=== PATIENT | female | born 1945 | race Caucasian/White ===

== ENCOUNTER 2019-07-15 10:07 | Inpatient (IN) ==
[2019-07-15] MEDS ORDERED: DILAUDID IV PRN (11:51)
[2019-07-15] MEDS ORDERED: PROTONIX IV ONE (12:00)
[2019-07-15 12:14] LABS: INR 1.07; PROTIME 14.1 Seconds (11.0-16.0)
[2019-07-15 12:15] LABS: PTT 32.8 Seconds (22.3-41.8)
[2019-07-15 12:18] LABS: ALB/GLOB RATIO 1.2; ALBUMIN 4.9 g/dL (3.5-5.0); CALCIUM 9.5 mg/dL (8.8-10.2); CREATININE 1.2 mg/dL (0.5-0.9); POTASSIUM 3.7 mmol/L (3.5-5.1); TOTAL BILIRUBIN 0.74 mg/dL (0.20-1.00); TOTAL PROTEIN 8.9 g/dL (6.3-8.3)
[2019-07-15 12:21] LABS: BASO# 0.02 X1000 (0.0-0.2); BASO% 0.2 % (0.0-0.8); EOS# 0.01 X1000 (0.0-0.7); EOS% 0.1 % (0.0-10.0); HEMATOCRIT 39.9 % (37.0-47.0); HEMOGLOBIN 13.1 g/dL (12.0-16.0); IMM GRAN# 0.03 X1000 (0.0-0.04); IMM GRAN% 0.2 % (0.0-0.5); LYMPH# 0.98 X1000 (1.2-3.4); MCH 30.5 PG (27-31); MCHC 32.8 g/dL (33-37); MONO# 0.72 X1000 (0.11-0.59); MONO% 5.9 % (1.7-9.3); MPV 9.8 FL (7.4-10.4); NEUT# 10.46 X1000 (1.4-6.5); NEUT% 85.6 % (42.2-75.2); PLT 287 X1000 (130-400); RBC 4.29 XMIL (4.2-5.4); RDW 13.2 % (11.5-14.5); WBC 12.22 X1000 (4.8-10.8)
--- NOTE | 2019-07-15 12:21 | Diag Imaging Result Doc PS360 ---
EXAM: ABDOMEN FLAT/UPRIGHT 07/15/2019 HISTORY: Abdominal Pain TECHNIQUE: Flat and upright abdomen COMMENT: There is a phlebolith on the left side of the pelvis and multiple smaller calcifications are present which may also represent phleboliths. There is a calcification in the left upper quadrant which appears to be above the left kidney. This may be a granuloma. The bowel gas pattern is unremarkable. Compared to 05/12/2017 the appearance of the abdomen including the calcifications described above has not changed significantly. IMPRESSION: Nonspecific abdomen. Electronically signed by Keyshawn Rush 07/15/2019 12:19 PM
[2019-07-15 12:34] LABS: BANDS 2 % (0-1); LYMPHS 10 % (21-51); SEGS 88 % (42-75)
--- NOTE | 2019-07-15 12:58 | Diag Imaging Result Doc PS360 ---
EXAM: CT ABDOMEN/PELVIS W/O CONTRAST 07/15/2019 HISTORY: Abdominal pain TECHNIQUE: This exam was performed using automated exposure control, adjustment of mA or kV according to patient size, and/or use of iterative reconstruction technique. COMMENT: There is a calcified granuloma in the lateral right lower lobe costophrenic sulcus. The appearance of the visualized portion of the chest has not changed significantly since 04/06/2018. There is generalized cardiomegaly with particular enlargement of the atria. There are granulomata in the liver. The spleen is not enlarged. The adrenal glands are not enlarged. There are dense calcifications in the proximal renal arteries bilaterally. There is no evidence of abdominal aortic aneurysm. The gallbladder is distended and thickened in appearance. There is no appreciable cholelithiasis. The common bile duct is distended to at least 13 mm. This has increased from 10 mm at the time the previous study. There are no definite abnormalities in the pancreas although this is a noncontrast study. There is a 2 mm calculus in the upper pole of the left kidney. There is a 1 to 2 mm calculus in the upper pole on the left and there are multiple left renal cysts some of which are hyperdense in appearance. There is no evidence of hydronephrosis. There is no evidence of bowel obstruction. There is no evidence of appendicitis. There is some fluid anteriorly in the pelvis. This was not the case on the previous study. The urinary bladder is not distended. There has been hysterectomy. There is no evidence of significant adenopathy. IMPRESSION: The possibility of acute cholecystitis cannot be excluded. Bilateral nephrolithiasis without evidence of obstructive uropathy. Nonspecific free fluid in the pelvis. Other nonacute findings as described above. The findings were discussed with Kobi Wyatt MD at 07/15/2019 12:55 PM. Electronically signed by Keyshawn Rush 07/15/2019 12:56 PM
[2019-07-15] MEDS: ZOSYN 3.375 GM in NS 50 ML IV SCH ×2 (14:37→18:00)
[2019-07-15] MEDS: NS 1,000 ML IV SCH (14:38)
[2019-07-15] MEDS: ZOFRAN IV SCH (14:43)
[2019-07-15] MEDS ORDERED: HYZAAR 100/12.5 MG TAB PO SCH (14:45)
--- NOTE | 2019-07-15 15:18 | EKG Report ---
Test Performed on : 07/15/2019 2:56:16 PM Test Reason : CP Blood Pressure : / mmHG Vent. Rate : 064 BPM Atrial Rate : 357 BPM P-R Int : 000 ms QRS Dur : 068 ms QT Int : 406 ms P-R-T Axes : 000 035 044 degrees QTc Int : 418 ms Atrial fibrillation. Nonspecific ST and T wave abnormality Abnormal ECG When compared with ECG of 20-AUG-2015 17:08, T wave inversion less evident in Anterolateral leads Confirmed by Dino CUELLAR, Freddy Arcos ([id number]) on 07/16/2019 7:44:13 AM
--- NOTE | 2019-07-15 15:35 | HISTORY AND PHYSICAL ---
CHIEF COMPLAINT: Abdominal pain. HISTORY OF PRESENT ILLNESS: A 74-year-old, female patient, who started having abdominal pain yesterday. The patient described pain in the upper abdomen, moderate in intensity, at times severe. Pain from the upper abdomen going to her back. The patient did have some nausea. She vomited once. The patient also had some chills. No high-grade fever. The pain persisted the whole night. At times pain was easing up some. The patient was concerned. She came for evaluation to my office. I evaluated patient in the office. The patient did have significant tenderness in the upper abdomen with some voluntary guarding. Because of her abdominal pain, tenderness, pain going to her back, I decided to admit the patient for further management. Workup did reveal possibility of acute cholecystitis. No gallstones. The patient does have history of atrial fibrillation on Xarelto. The patient claims she did not take her Xarelto last night. She denied any typical chest pain. Occasional palpitations. No hematemesis or melena. The patient did have diarrhea yesterday, but no blood or mucus in the stool. The patient was complaining of cough with yellowish expectoration. No hemoptysis. No unusual shortness of breath. No runny nose, stuffy nose, sinus drainage. Denied weight loss. No heat or cold intolerance. No focal numbness, tingling, weakness. The patient claims to be under stress. ALLERGIES: Sulfa. MEDICATIONS: Includes atenolol, Hyzaar, Xarelto, Norvasc, Lanoxin, Synthroid. PAST MEDICAL HISTORY: Hypertension, paroxysmal atrial fibrillation, hypothyroidism, gastritis, osteoarthritis, history suggestive of coronary artery disease. SOCIAL HISTORY: . Nonsmoker. Denied alcohol or substance abuse. Fairly independent in activities of daily living. REVIEW OF SYSTEMS: As per HPI. Otherwise unobtainable. FAMILY HISTORY: Noncontributory. REVIEW OF SYSTEMS: As per HPI. PHYSICAL EXAMINATION: GENERAL: Elderly white female patient in mild distress. VITAL SIGNS: Blood pressure 169/76, pulse 80, respiration 18, temperature 97.7 degrees. SKIN: Senile turgor. HEENT: Head atraumatic, normocephalic. [place] conjunctivae. Anicteric sclerae. Extraocular muscle movement normal. Fundus cannot be penetrated. Good oral hygiene. No tonsillopharyngeal congestion or exudate. Ears and nose benign. NECK: Supple. No JVD, thyromegaly or lymphadenopathy. CHEST: Bibasilar crepitation. No rales. CARDIOVASCULAR: S1 and S2 heard. No gallop or thrill. A 2/6 systolic murmur at the apex. ABDOMEN: Soft. No distention. Bowel sounds present. The patient does have tenderness in the upper abdomen. No guarding or rigidity. EXTREMITIES: No cyanosis, clubbing. No acute DVT. FLYER MAKER: Alert, awake. Answering questions fairly well. MUSCULOSKELETAL: No evidence of acute synovitis. Abdominal x-ray flat and upright: Nonspecific abdomen. CT scan of the abdomen and pelvis did reveal possibility of acute cholecystitis bilateral nephrolithiasis without evidence of obstructive uropathy. Nonspecific free fluid in the pelvis, other nonacute findings. LABORATORY DATA: Revealed mild leukocytosis with left shift. The patient does have 2 bands. PT/INR of 1.07, PTT 32.8. BUN 22 creatinine 1.2. Estimated GFR 44. LFTs were fairly benign. Amylase 90, lipase 33. CONSIDERATIONS: Patient admitted with upper abdominal pain some nausea, and vomiting. CT scan did reveal acute cholecystitis. 1. The first consideration acute cholecystitis. 2. The patient's other problem includes atrial fibrillation. 3. Hypertension. 4. Gastritis and reflux disease. 5. Hypothyroidism. PLAN: Admit the patient. IV hydration. IV antibiotics. Discussed about the patient's presentation with Dr. Nichols. Also informed him about her anticoagulation which she took last [address] Nichols going to evaluate the patient and then decide about possible surgery. cc: Kobi Wyatt MD
[2019-07-15] MEDS ORDERED: DIPRIVAN 1% ONE (16:16)
[2019-07-15] MEDS ORDERED: REGLAN ONE (17:07)
[2019-07-15] MEDS ORDERED: PEPCID ONE (17:07)
[2019-07-15] MEDS ORDERED: MARCAINE 0.25% PF/EPI 1:200,000 ONE (17:09)
[2019-07-15] MEDS ORDERED: LR 1,000 ML ONE (17:10)
[2019-07-15] MEDS ORDERED: SODIUM CHLORIDE 0.9% ONE (17:10)
[2019-07-15] MEDS ORDERED: OFIRMEV 1000 MG/ISOTONIC SOLN 1,000 MG/100 ML BOTTLE ONE (17:26)
[2019-07-15] MEDS ORDERED: ZOFRAN ONE (17:26)
[2019-07-15] MEDS ORDERED: DECADRON ONE (17:26)
[2019-07-15] MEDS ORDERED: XYLOCAINE-MPF 2% ONE (17:26)
[2019-07-15] MEDS ORDERED: QUELICIN (DOSE) ONE (17:26)
[2019-07-15] MEDS ORDERED: ZEMURON ONE (17:26)
--- NOTE | 2019-07-15 17:43 | GENERAL SURGERY CONSULTATION ---
DATE: 07/15/2019 HISTORY OF PRESENT ILLNESS: Ms. Chairez is 74-year-old lady I have been asked to see by Dr. Wyatt regarding her abdominal pain primarily in the epigastrium. She reports it started yesterday. The pain kept her awake through the night it was colicky in nature. She did have some nausea and she vomited x1. She reports some chills. Today, the pain persisted. She saw Dr. Wyatt in the office. He then admitted her for a workup. Her CT scan shows a dilated gallbladder with some thickness to the wall. She denies any chest pain. Her past history is pertinent for hypertension, paroxysmal atrial fibrillation, hypothyroidism, gastritis, osteoarthritis and possible coronary disease. MEDICATIONS: Her medications include atenolol, Hyzaar, Norvasc, Lanoxin, Synthroid. She is on Xarelto but has not taken it since night before last. ALLERGIC: Sulfa. SOCIAL HISTORY: She is a , nonsmoker. No alcohol or substance abuse. She does have attentive son and a friend. REVIEW OF SYSTEMS: Negative in the 10 subsystems except as noted above. FAMILY HISTORY: Not known. PHYSICAL EXAMINATION: Vital Signs: She is afebrile. Heart rate 84. Blood pressure is 115/51, respiratory rate 16. Neck: No cervical adenopathy. Respiratory: Bilateral breath sounds. Heart: Irregular rate and rhythm. Abdomen: Soft. She is tender in the epigastrium. No masses palpated. Femoral pulses are present. No peripheral edema. Neurologic: She is awake and alert. She has good strength in all extremities. LABORATORY DATA: Her laboratory data reveals white count of 12,200. Her total bilirubin is 0.74. Alkaline phosphatase is 119. Troponin is less than 0.01. Amylase and lipase are normal. CT scan reports the possibility of acute cholecystitis. There is bilateral nephrolithiasis. ASSESSMENT: Probable acute cholecystitis. PLAN: I have discussed for a cholecystectomy with her, the benefits and risks. She understands and wants to proceed. We will plan a laparoscopic approach. cc: MD Kobi Ivory MD
[2019-07-15] MEDS ORDERED: LOPRESSOR ONE (17:44)
[2019-07-15] MEDS ORDERED: BREVIBLOC ONE (17:44)
[2019-07-15] MEDS ORDERED: FENTANYL ONE (17:54)
[2019-07-15] MEDS ORDERED: NEOSTIGMINE ONE (17:59)
[2019-07-15] MEDS ORDERED: ROBINUL ONE (17:59)
[2019-07-15 18:15] LABS: URINE SOURCE CLEAN CATCH
[2019-07-15 18:21] LABS: BILIRUBIN URINE NEGATIVE (NEGATIVE); BLOOD URINE SMALL (NEGATIVE); COLOR YELLOW; GLUCOSE URINE NEGATIVE (NEGATIVE); KETONE URINE NEGATIVE (NEGATIVE); LEUKOCYTES URINE NEGATIVE (NEGATIVE); NITRITE URINE NEGATIVE (NEGATIVE); PROTEIN URINE 200 mg/dL (NEGATIVE); SP GRAVITY URINE 1.017; TURBIDITY URINE CLEAR (CLEAR); UR EPITHELIAL CELLS <10 /HPF (<10); URINE BACTERIA NEGATIVE /HPF; URINE RBC <10 /HPF (<10); URINE WBC <10 /HPF (<10); UROBILINOGEN URINE NORMAL (NORMAL)
[2019-07-15] MEDS: PERIDEX MT SCH (20:06)
[2019-07-15] MEDS: NORCO-10 PO PRN (20:10)
--- NOTE | 2019-07-15 21:34 | OPERATIVE NOTE ---
PROCEDURE DATE: 07/15/2019 PROCEDURE PERFORMED: Laparoscopic cholecystectomy with operative cholangiogram. SURGEON: Jamey Nichols MD. STERILE PROCESSING MANAGER: Mendy Dior. PREOPERATIVE DIAGNOSIS: Acute acalculous cholecystitis. POSTOPERATIVE DIAGNOSIS: Acute acalculous cholecystitis. FINDINGS: The cholangiogram revealed a slightly dilated duct with no intraluminal filling defects. Free flow in the duodenum. DESCRIPTION OF PROCEDURE: Satisfactory general endotracheal anesthesia was achieved. The abdomen was prepped and draped in a sterile fashion. We anesthetized the skin just below the umbilicus. We incised the skin and carried our incision down to the fascia. We scored the fascia and introduced an 11 trocar under Optiview technique. We insufflated through this trocar under direct visualization. We used a 5 trocar midclavicular line, 5 trocar near the anterior axillary line and 11 mm trocar in the midepigastrium. We placed the patient in reverse Trendelenburg and turned her to the left. The gallbladder was enlarged and distended. We aspirated it with the aspirating needle to decompress it. We then grasped it with a ratcheted grasper and reflected it cephalad. We then began dissection of the triangle of [place]. We dissected the omental adhesions off the infundibulum and then dissected the triangle. We obtained a critical view. We clipped the cystic artery proximally x2 and distally x1 and divided it. The cystic duct was clipped near the junction of the gallbladder. We incised the cystic duct and introduced a [place] catheter, and the findings above were noted. We removed the cholangiogram catheter, clipped the cystic duct on the opposite side of the cystic ductotomy x2, and then transected it. We then used the cautery spatula to dissect the gallbladder out of the gallbladder fossa. After complete separation of the gallbladder from the liver, we then changed the videolaparoscope to the mid epigastric trocar, and we introduced an EndoCatch, placed the gallbladder within the bag and delivered it out of the abdominal cavity. We looked back and aspirated what fluid had collected. Hemostasis was satisfactory. There was no evidence of bile leak. We flattened the patient and used a Sloan- Jennifer wound closure for the epigastrium. A 2-0 Polysorb stitch was used for that. We then decompressed the abdominal cavity and removed our trocars. We closed the fascia at the umbilicus with a 2-0 Polysorb fascial stitch there. We then closed the skin at each incision with 4-0 Polysorb subcuticular stitches. Sterile OpSites were applied. She tolerated it well and was sent to the recovery room in satisfactory condition. cc: MD Kobi Ivory MD
[2019-07-16] MEDS: ZOSYN 3.375 GM in NS 50 ML IV SCH ×4 (00:20→17:03)
[2019-07-16] MEDS: ZOFRAN IV SCH ×4 (00:20→17:03)
[2019-07-16] MEDS: NS 1,000 ML IV SCH ×2 (05:18→17:01)
[2019-07-16] MEDS: SYNTHROID PO SCH ×2 (05:24→06:02)
[2019-07-16 07:27] LABS: HEMATOCRIT 33.9 % (37.0-47.0); HEMOGLOBIN 10.9 g/dL (12.0-16.0); IMM GRAN# 0.02 X1000 (0.0-0.04); IMM GRAN% 0.1 % (0.0-0.5); LYMPH% 2.8 % (20.5-51.1); MCH 30.4 PG (27-31); MCHC 32.2 g/dL (33-37); MCV 94.4 FL (81-99); MONO# 0.67 X1000 (0.11-0.59); MONO% 4.7 % (1.7-9.3); MPV 9.9 FL (7.4-10.4); NEUT# 13.23 X1000 (1.4-6.5); NEUT% 92.4 % (42.2-75.2); PLT 230 X1000 (130-400); RBC 3.59 XMIL (4.2-5.4); RDW 13.2 % (11.5-14.5); WBC 14.32 X1000 (4.8-10.8)
[2019-07-16 07:44] LABS: ALBUMIN 3.6 g/dL (3.5-5.0); CALCIUM 7.8 mg/dL (8.8-10.2); CREATININE 1.3 mg/dL (0.5-0.9); MAGNESIUM 1.8 mg/dL (1.5-2.7); POTASSIUM 3.7 mmol/L (3.5-5.1); TOTAL BILIRUBIN 0.94 mg/dL (0.20-1.00); TOTAL PROTEIN 7.3 g/dL (6.3-8.3)
[2019-07-16 08:06] LABS: BANDS 12 % (0-1); LYMPHS 2 % (21-51); MONO 2 % (1-9); SEGS 84 % (42-75)
[2019-07-16] MEDS: PROTONIX IV SCH (08:07)
[2019-07-16] MEDS: NORVASC PO SCH ×2 (08:07→08:09)
[2019-07-16] MEDS: PERIDEX MT SCH ×2 (08:07→20:56)
[2019-07-16] MEDS: TENORMIN PO SCH (08:07)
--- NOTE | 2019-07-16 10:34 | PROGRESS NOTE ---
DATE: 07/16/2019 SUBJECTIVE: The patient says she is feels sore after her cholecystectomy. She had her surgery yesterday for acute acalculous cholecystitis. OBJECTIVE: Vital signs: Blood pressure is 121/73, respirations 18, pulse 95, temperature 97.8 degrees Fahrenheit. HEENT: She is normocephalic. PERRLA. Throat clear. Lungs: Clear to auscultation and percussion without rhonchi, rales, or wheezes. Heart: Regular rate and rhythm without murmurs, gallops, friction rubs. Abdomen: Soft with active bowel sounds but tender because of her surgery. Neurological: Intact grossly. ASSESSMENT: Status post cholecystectomy. PLAN: Continue care. cc: MD Kobi Loving Jr, MD
--- NOTE | 2019-07-16 11:57 | GENERAL SURGERY PROGRESS NOTE ---
DATE: 07/16/2019 SUBJECTIVE: The patient complains of nausea. She has been able to drink a little bit of clear liquids but not much due to the nausea. She has already been up walking. OBJECTIVE: She is afebrile. Vital signs are stable.General: She is awake, alert, oriented x3. No acute distress. GI: Soft, perhaps some mild distention, hypoactive bowel sounds. Incisional dressings are clean and dry. LABORATORY: White blood cell count [id number], hemoglobin 11. Complete metabolic profile reviewed and unremarkable. ASSESSMENT AND PLAN: A 74-year-old female postoperative day 1 laparoscopic cholecystectomy. She is nauseated. We will continue observation and treat her nausea and keep her on clear liquids for now. cc: MD Kobi Shah MD
[2019-07-16] MEDS: NORCO-10 PO PRN (17:03)
[2019-07-17] MEDS: ZOSYN 3.375 GM in NS 50 ML IV SCH ×5 (04:12→21:42)
[2019-07-17] MEDS: NS 1,000 ML IV SCH ×2 (04:13→16:54)
[2019-07-17] MEDS: ZOFRAN IV SCH ×5 (04:13→21:43)
[2019-07-17] MEDS: SYNTHROID PO SCH (06:07)
[2019-07-17] MEDS: NORCO-10 PO PRN (09:19)
[2019-07-17] MEDS: TENORMIN PO SCH (09:22)
[2019-07-17] MEDS: NORVASC PO SCH (09:22)
[2019-07-17] MEDS: PROTONIX IV SCH (09:23)
[2019-07-17] MEDS: LANOXIN PO SCH (09:23)
[2019-07-17] MEDS: PERIDEX MT SCH ×2 (09:23→21:42)
--- NOTE | 2019-07-17 10:44 | PROGRESS NOTE ---
DATE: 07/19/2019 SUBJECTIVE: The patient says she does not feel well, that she has had nausea and has had more abdominal pain. She feels like her abdomen is more distended. She is postop cholecystectomy and some of the distention could be anticipated just from her surgery and that she has had air in her abdomen, she thinks this is more. OBJECTIVE: Vital Signs: Temperature is 98.3 degrees Fahrenheit, pulse 84 and regular, respirations 18, blood pressure 121/59. HEENT: She is normocephalic. EOMs intact. PERRLA. Throat clear. Neck: Supple. Lungs: Clear to auscultation and percussion without rhonchi, rales, or wheezes. Heart: Regular rate and rhythm without murmurs, gallops, or friction rubs. Abdomen: Does seem somewhat distended. This is not uncommon after a laparoscopic cholecystectomy but there are a few little high tinkling bowel sounds. ASSESSMENT: 1. Status post cholecystectomy for acalculous cholecystitis. 2. Abdominal pain. PLAN: This pain may be just postoperative discomfort. Since the bowel sounds are a little high pitched and she seems distended, we will go ahead and get x-rays just to make sure she does not have an ileus. Surgery will also see her today. Laboratory work is pending. cc: MD Kobi Loving Jr, MD
[2019-07-17 11:21] LABS: HEMATOCRIT 31.1 % (37.0-47.0); HEMOGLOBIN 9.7 g/dL (12.0-16.0); IMM GRAN# 0.05 X1000 (0.0-0.04); IMM GRAN% 0.4 % (0.0-0.5); LYMPH# 0.83 X1000 (1.2-3.4); LYMPH% 6.1 % (20.5-51.1); MCH 30.1 PG (27-31); MCHC 31.2 g/dL (33-37); MCV 96.6 FL (81-99); MONO# 0.86 X1000 (0.11-0.59); MONO% 6.3 % (1.7-9.3); MPV 10.1 FL (7.4-10.4); NEUT# 11.85 X1000 (1.4-6.5); NEUT% 87.2 % (42.2-75.2); PLT 213 X1000 (130-400); RBC 3.22 XMIL (4.2-5.4); RDW 13.6 % (11.5-14.5); WBC 13.59 X1000 (4.8-10.8)
[2019-07-17 11:22] LABS: CREATININE 1.3 mg/dL (0.5-0.9); POTASSIUM 3.9 mmol/L (3.5-5.1)
--- NOTE | 2019-07-17 11:33 | Diag Imaging Result Doc PS360 ---
EXAM: FLAT/UPRIGHT ABD/1 VIEW CHEST 07/17/2019 HISTORY: abd pain and distension TECHNIQUE: Flat and upright abdomen with AP chest COMMENT: There are air-fluid levels in the ascending colon. The stomach and small bowel are not distended. Compared to 07/15/2019 there is more colonic gas. The heart size is slightly enlarged. There are bilateral pleural effusions. Compared to the previous study of 08/20/2015, the pleural effusions were not present previously. There is also bibasilar atelectasis which was not previously present. IMPRESSION: The possibility of enterocolitis cannot be excluded. No evidence of obstruction. Cardiomegaly and pleural effusions with bibasilar atelectasis. Electronically signed by Keyshawn Rush 07/17/2019 11:31 AM
[2019-07-17 12:14] LABS: LYMPHS 6 % (21-51); MONO 8 % (1-9); SEGS 86 % (42-75)
--- NOTE | 2019-07-17 18:34 | GENERAL SURGERY PROGRESS NOTE ---
DATE: 07/17/2019 SUBJECTIVE: She continues to complain of nausea. No significant pain. OBJECTIVE: Vitals: She is afebrile. Vital signs are stable. General: She is awake and alert, appears ill but in no acute distress. GI: Soft, minimally tender. Mildly distended. Incision is clean, dry, intact. LABORATORY: White blood cell count 13,000, hemoglobin 9.7, hematocrit 31. Electrolytes reviewed, unremarkable. IMAGING: Abdominal x-ray shows air-fluid levels in ascending colon. Small bowel and stomach are not distended. There is more colonic gas than previous x-ray. ASSESSMENT/PLAN: A 74-year-old female status post laparoscopic cholecystectomy. She appears to be having some sort of postoperative ileus, mainly in the colon. I would continue supportive care at this time. I expect this to slowly resolve. cc: MD Kobi Shah MD
[2019-07-18] MEDS: NORCO-10 PO PRN (01:08)
[2019-07-18] MEDS: ZOSYN 3.375 GM in NS 50 ML IV SCH ×4 (03:07→22:10)
[2019-07-18] MEDS: ZOFRAN IV SCH ×5 (03:07→22:10)
[2019-07-18] MEDS: SYNTHROID PO SCH (06:45)
--- NOTE | 2019-07-18 07:16 | PROGRESS NOTE ---
DATE: 07/18/2019 SUBJECTIVE: Ms. Chairez is doing fair. She still has some abdominal soreness and nausea. No vomiting. No high-grade fever or chills. The patient is status post cholecystectomy. No diarrhea. No runny nose, stuffy nose, mild cough. No expectoration. OBJECTIVE: Vital Signs: Noted. Neck: Supple. No JVD. Lungs: Bilateral good air entry present. Cardiovascular: S1 and S2 heard. Irregularly irregular. Abdomen: Soft, mild soreness. Extremities: No cyanosis, clubbing. No acute DVT. SHAPING MACHINE OPERATOR: Alert, awake, answering questions fairly well. X-RAY: X-ray done yesterday did reveal possibility of enterocolitis. No evidence of obstruction, cardiomegaly and pleural effusion. We will encourage ambulation. I am going to try Dulcolax suppository. I am going to resume Xarelto if okay with surgeon. LABORATORY DATA: Laboratory data done yesterday noted electrolytes were fairly benign. PLAN: Overall plan discussed with the patient. When okay with surgeon, we will discharge patient home. cc: Kobi Wyatt MD
[2019-07-18] MEDS: DULCOLAX PR ONE ×2 (08:15→18:53)
[2019-07-18] MEDS: PROTONIX IV SCH (08:16)
[2019-07-18] MEDS: NORVASC PO SCH (08:16)
[2019-07-18] MEDS: TENORMIN PO SCH (08:16)
[2019-07-18] MEDS: PERIDEX MT SCH ×2 (08:16→22:10)
--- NOTE | 2019-07-18 08:53 | GENERAL SURGERY PROGRESS NOTE ---
DATE: 07/18/2019 She is now 3 days after a laparoscopic cholecystectomy. Her pain is resolved. She is gradually getting back to normal. A little slow on her p.o. intake. We will give her some regular food today. It is okay with me that she go home today and then return to see me in the office in a week. cc: MD Kobi Ivory MD
--- NOTE | 2019-07-18 11:25 | Diag Imaging Result Doc PS360 ---
OPERATIVE CHOLANGIOGRAM - 07/15/2019 INDICATION: CHOLECYSTECTOMY TECHNIQUE: The exam was performed by the patient's surgeon. Two images were obtained. COMPARISON: CT from 07/15/2019 FINDINGS: Contrast was infused into the cystic duct. There is moderate diffuse dilation of the common bile duct is nonspecific. No focal strictures or filling defect. There is good passage of contrast into the duodenum. Several hepatic ducts were opacified and these appear normal. IMPRESSION: Nonspecific, moderate diffuse dilation of the common bile duct. Electronically signed by Jake Valencia 07/18/2019 11:23 AM
[2019-07-18] MEDS ORDERED: XARELTO PO SCH (17:00)
[2019-07-18] MEDS: NS 1,000 ML IV SCH (18:12)
[2019-07-19] MEDS: ZOFRAN IV SCH ×2 (04:31→07:53)
[2019-07-19] MEDS: ZOSYN 3.375 GM in NS 50 ML IV SCH (04:31)
[2019-07-19 05:31] LABS: BASO# 0.02 X1000 (0.0-0.2); BASO% 0.2 % (0.0-0.8); EOS# 0.05 X1000 (0.0-0.7); EOS% 0.5 % (0.0-10.0); HEMATOCRIT 31.1 % (37.0-47.0); HEMOGLOBIN 10.1 g/dL (12.0-16.0); IMM GRAN# 0.04 X1000 (0.0-0.04); IMM GRAN% 0.4 % (0.0-0.5); LYMPH% 12.6 % (20.5-51.1); MCH 30.5 PG (27-31); MCHC 32.5 g/dL (33-37); MONO# 0.67 X1000 (0.11-0.59); MONO% 7.1 % (1.7-9.3); MPV 9.9 FL (7.4-10.4); NEUT# 7.51 X1000 (1.4-6.5); NEUT% 79.2 % (42.2-75.2); PLT 253 X1000 (130-400); RBC 3.31 XMIL (4.2-5.4); WBC 9.49 X1000 (4.8-10.8)
[2019-07-19] MEDS: SYNTHROID PO SCH ×2 (05:51→05:59)
[2019-07-19 06:13] LABS: ALBUMIN 3.4 g/dL (3.5-5.0); CALCIUM 8.4 mg/dL (8.8-10.2); CREATININE 1.2 mg/dL (0.5-0.9); MAGNESIUM 1.9 mg/dL (1.5-2.7); POTASSIUM 3.2 mmol/L (3.5-5.1); TOTAL BILIRUBIN 0.41 mg/dL (0.20-1.00); TOTAL PROTEIN 6.9 g/dL (6.3-8.3)
[2019-07-19] MEDS ORDERED: KLOR-CON PO ONE (06:21)
--- NOTE | 2019-07-19 07:08 | Diag Imaging Result Doc PS360 ---
EXAM: CHEST-PORTABLE 07/19/2019 HISTORY: sob TECHNIQUE: AP portable at 0505 COMMENT: There is some effusion on the left with blunting of the costophrenic angle. This is slightly worse than on 07/07/2019. The inspiration is generally less optimal. IMPRESSION: Slightly worsened left pleural effusion. Electronically signed by Keyshawn Rush 07/19/2019 7:05 AM
[2019-07-19 07:30] VITALS: BP 157/77
[2019-07-19] MEDS: PERIDEX MT SCH (07:52)
[2019-07-19] MEDS: PROTONIX IV SCH (07:53)
[2019-07-19] MEDS: TENORMIN PO SCH (07:53)
[2019-07-19] MEDS: LANOXIN PO SCH (07:53)
[2019-07-19] MEDS: NORVASC PO SCH (08:01)
--- NOTE | 2019-07-19 13:34 | DISCHARGE SUMMARY ---
ADMISSION DATE: 07/15/2019 DISCHARGE DATE: 07/19/2019 FINAL DISCHARGE DIAGNOSES: 1. Acute cholecystitis status post cholecystectomy. 2. Atrial fibrillation. 3. Hypertension. 4. Gastritis and reflux disease. 5. Hypothyroidism. 6. Hypokalemia. HISTORY OF PRESENT ILLNESS: Ms Chairez is a 74-year-old, white female patient admitted with abdominal pain, nausea, pain was moderate in intensity. The patient vomited once at home. She also had some chills. I evaluated patient in the office. and admitted her for further care. Her workup did reveal possibility of acute cholecystitis, bilateral nephrolithiasis without evidence of obstructive uropathy. The patient underwent surgical evaluation and cholecystectomy. The patient tolerated procedure fairly well. Her recovery was slow. We continued her IV antibiotics. Overall, patient is doing better. She does have some diarrhea. The patient is tolerating food better. Repeat lab done today did reveal hypokalemia. Leukocytosis improving. No fever or chills. Overall, patient is doing better and I am planning to discharge her home today. PHYSICAL EXAMINATION: Vital signs: Noted. Patient is afebrile. Neck: Supple. No JVD. Lungs: Bilateral good air entry present. Cardiovascular: S1 and S2 heard. Irregularly irregular. Abdomen: Soft. No distention. Bowel sounds present. Mild soreness. Extremities: No cyanosis, clubbing. No acute DVT. Central Nervous System: Alert, awake able to move all 4 limbs. LABORATORY DATA: Done today, WBC count 9.49, hemoglobin 10.1, hematocrit 31.1, platelet count 253,000. I did resume her Xarelto yesterday. Her potassium was 3.2, magnesium 1.9. Overall, patient received maximum benefit of hospitalization. The patient does have an inhaler at home. Advised to continue. Follow up with me in a week's time. Resume home medicine. I am going to give her Levaquin for few days. Klor-Con. I gave her pain medicine, a few. In case of more distress, call us back or go to emergency room. Overall discharge condition satisfactory. cc: Kobi Wyatt MD
== END 2019-07-19 09:28 | disposition home or self-care (01) | DRG 418 ==
LOC: DIRADM 10:07 → EDIPHOLD 11:02 → 4N 14:14
PROVIDERS: ADMIT Internal Medicine; ATTEND Internal Medicine